=== PATIENT | male | born 1985 | race Two or more races ===

== ENCOUNTER 2020-07-03 10:14 | Emergency (ER) | payer OTHER ==
[~2020-07-03] VITALS: Ht 180.3 cm; Wt 68.0 kg
[2020-07-03 10:18] VITALS: BP 136/85
== END 2020-07-03 12:49 | disposition left against medical advice (07) ==
LOC: ER 10:14
DX: R10.10 Upper abdominal pain, unspecified (principal); R19.7 Diarrhea, unspecified; Z53.21 Procedure and treatment not carried out due to patient leaving prior to being seen by health care provider